=== PATIENT | female | born 1965 | race Two or more races ===

== ENCOUNTER 2024-03-25 15:40 | Inpatient (IN) | payer MEDICAID, OTHER ==
[~2024-03-25] VITALS: Ht 188 cm; Wt 64.1 kg
[2024-03-25] MEDS: hydrALAZINE HCL 20 MG/ML VL IV ONE ×2 (16:36→17:28)
[2024-03-25 16:37] VITALS: PULSE 82; RESP 16; O2SAT 95
[2024-03-25 19:05] VITALS: PULSE 94; RESP 16; O2SAT 97
[2024-03-25 19:18] LABS: Basophils # (auto) 0 10 ^3/uL (0-0.2); Basophils % (auto) 0.6 % (0.0-2.0); Eosinophils # (auto) 0.1 10 ^3/uL (0-0.8); Eosinophils % (auto) 1.6 % (0.0-7.0); Hematocrit 42.9 % (36.0-46.0); Hemoglobin 14.8 g/dL (12.2-16.2); Lymphocytes # (auto) 2.5 10 ^3/uL (0.4-5.4); Lymphocytes % (auto) 37.3 % (10.0-50.0); Mean Corpuscular Hemoglobin 30.1 pg (28.0-32.0); Mean Corpuscular Hgb Conc. 34.6 g/dL (32.0-36.0); Monocytes # (auto) 0.3 10 ^3/uL (0-1.3); Neutrophils # (auto) 3.7 10 ^3/uL (1.6-8.6); Neutrophils % (auto) 55.5 % (37.0-80.0); Nucleated Red Blood Cells % 0.1 %; Platelet Count (auto) 196 10^3/uL (140-450); Red Blood Cells 4.93 10^6/uL (4.0-5.20); Red Cell Distribution Width 13.5 % (11.8-14.3); White Blood Cell 6.6 10^3/uL (4.4-10.8)
[2024-03-25 19:37] LABS: Alanine Aminotransferase 15 U/L (7-40); Albumin 4.6 g/dL (3.2-4.8); Alkaline Phosphatase 85 U/L (46-116); Anion Gap 10 (5-15); Aspartate Aminotransferase < 8 U/L (13-40); Bilirubin, Total 0.5 mg/dL (0.2-1.0); Blood Urea Nitrogen 14 mg/dL (9-23); Calcium 10.1 mg/dL (8.7-10.4); Carbon Dioxide 23 mmol/L (20-31); Chloride 103 mmol/L (98-107); Glucose 308 mg/dL (74-106); Potassium 3.6 mmol/L (3.5-5.1); Sodium 136 mmol/L (136-145); Total Protein 7.9 g/dL (5.7-8.2)
[2024-03-25] MEDS ORDERED: MORPHINE SULFATE INJ 2 MG/ml SYRG IV PRN (22:15)
[2024-03-25] MEDS ORDERED: ONDANSETRON HCL 4 MG/2 ML VIAL IV PRN (22:15)
[2024-03-25] MEDS ORDERED: ACETAMINOPHEN 500 MG TAB PO PRN (22:15)
[2024-03-25] MEDS ORDERED: DEXTROSE (50%) 50ML SYRG IV PRN (22:30)
[2024-03-25] MEDS: ATORVASTATIN 20 MG TAB PO ONE (22:35)
[2024-03-25] MEDS: ENOXAPARIN SOD 40 MG/0.4 ML SYRINGE SC ONE (22:35)
[2024-03-25] MEDS: LISINOPRIL 5 MG TAB PO ONE (22:37)
[2024-03-25] MEDS: ASPirin 81 mg TAB PO ONE (22:38)
[2024-03-25] MEDS: POTASSIUM EFFERVESENT TAB 25 MEQ GT ONE (22:39)
[2024-03-25] MEDS: ACCU-CHEK COMFORT CURVE STRIP VI SCH (22:58)
[2024-03-25 23:10] LABS: Uric Acid 2.9 mg/dL (3.1-7.8)
[2024-03-25 23:11] LABS: Magnesium 1.8 mg/dL (1.6-2.6)
[2024-03-25 23:22] LABS: INR 1.01 (0.9-1.15); Partial Thromboplastin Time 29.4 SEC (24.5-34.5); Prothrombin Time 10.7 sec (9.3-11.8)
[2024-03-25] MEDS: InsuLIN REG 1unit/0.01ml Soln (100units/ml) SC SCH (23:29)
[2024-03-26] VITALS (9 sets, daily range): BP systolic 103–146; BP diastolic 55–80; PULSE 56–99; RESP 17–18; TEMP 97.3–98.1; O2SAT 93–98
[2024-03-26] MEDS: METOPROLOL SUCCINATE XL 50 MG TAB PO ONE (00:26)
[2024-03-26] MEDS: INSULIN LANTUS (GLARGINE) 1 /0.01ml (100units/ml) SC SCH (00:37)
[2024-03-26 07:49] LABS: Basophils # (auto) 0.1 10 ^3/uL (0-0.2); Basophils % (auto) 0.7 % (0.0-2.0); Eosinophils # (auto) 0.1 10 ^3/uL (0-0.8); Eosinophils % (auto) 1.8 % (0.0-7.0); Hematocrit 45.4 % (36.0-46.0); Hemoglobin 15.7 g/dL (12.2-16.2); Lymphocytes # (auto) 2.7 10 ^3/uL (0.4-5.4); Lymphocytes % (auto) 36.3 % (10.0-50.0); Mean Corpuscular Hemoglobin 30.7 pg (28.0-32.0); Mean Corpuscular Hgb Conc. 34.6 g/dL (32.0-36.0); Mean Corpuscular Volume 88.7 fL (80.0-100.0); Monocytes # (auto) 0.4 10 ^3/uL (0-1.3); Monocytes % (auto) 5.4 % (0.0-12.0); Neutrophils # (auto) 4.2 10 ^3/uL (1.6-8.6); Neutrophils % (auto) 55.8 % (37.0-80.0); Nucleated Red Blood Cells % 0.1 %; Platelet Count (auto) 233 10^3/uL (140-450); Red Blood Cells 5.12 10^6/uL (4.0-5.20); Red Cell Distribution Width 13.7 % (11.8-14.3); White Blood Cell 7.5 10^3/uL (4.4-10.8)
[2024-03-26 07:56] LABS: Anion Gap 8 (5-15); Carbon Dioxide 28 mmol/L (20-31); Chloride 103 mmol/L (98-107); Potassium 3.8 mmol/L (3.5-5.1); Sodium 139 mmol/L (136-145)
[2024-03-26 07:57] LABS: Calcium 10.5 mg/dL (8.7-10.4)
[2024-03-26 08:02] LABS: BUN/Creatinine Ratio 18.3 (10.0-20.0); Blood Urea Nitrogen 11 mg/dL (9-23); Glucose 134 mg/dL (74-106)
[2024-03-26] MEDS: LISINOPRIL 5 MG TAB PO SCH (11:13)
[2024-03-26] MEDS: ENOXAPARIN SOD 40 MG/0.4 ML SYRINGE SC SCH (11:13)
[2024-03-26] MEDS: METOPROLOL SUCCINATE XL 50 MG TAB PO SCH (11:14)
[2024-03-26] MEDS: ASPirin 81 mg TAB PO SCH (11:14)
[2024-03-26] MEDS: ATORVASTATIN 20 MG TAB PO SCH (21:57)
[2024-03-26] MEDS: ERGOCALCIFEROL 50,000 UNIT(1.25MG) CAP PO SCH (21:57)
[2024-03-26] MEDS ORDERED: INSULIN LANTUS (GLARGINE) 1 /0.01ml (100units/ml) SC SCH ×2 (22:00)
[2024-03-27] VITALS (7 sets, daily range): BP systolic 123–162; BP diastolic 70–80; PULSE 62–72; RESP 18; TEMP 97.4–98.1; O2SAT 93–99
[2024-03-27 07:37] LABS: Urine Bacteria None Seen /hpf (None Seen)
[2024-03-27 07:52] LABS: COVID19 ANTIGEN SOFIA FIA NEGATIVE (NEGATIVE)
[2024-03-27 07:59] LABS: Urine Blood Negative /uL (Negative); Urine Clarity Clear (Clear); Urine Color Light-Yellow (Yellow); Urine Protein, UAD Negative (Negative); Urine Specific Gravity 1.008 (1.001-1.035); Urine Urobilinogen Normal (Negative); Urine WBC 2 /hpf (0 - 5); Urine pH 5.5 (5.0-9.0)
[2024-03-27 08:09] LABS: Amphetamine Screen, Urine Neg (NEGATIVE); Barbiturate Scree,Urine Neg (NEGATIVE); Benzodiazephine Screen, Urine Neg (NEGATIVE); Cocaine Screen, Urine Neg (NEGATIVE)
[2024-03-27 08:10] LABS: Cannabinoid Screen, Urine Neg (NEGATIVE); Opiate Scree,Urine Neg (NEGATIVE); Phencyclidine Screen, Urine Neg (NEGATIVE)
[2024-03-27] MEDS ORDERED: LISI-275 PO (13:51)
[2024-03-27] MEDS ORDERED: METO-6 PO (13:51)
[2024-03-27] MEDS ORDERED: ASPI-325 PO (13:51)
[2024-03-27] MEDS ORDERED: METF-929 PO (13:51)
[2024-03-27] MEDS ORDERED: ERGO1CAP23 PO (13:51)
[2024-03-27] MEDS ORDERED: ATOR20TA50 PO (13:51)
[2024-03-28] VITALS (10 sets, daily range): BP systolic 121–154; BP diastolic 66–86; PULSE 59–78; RESP 17–20; TEMP 91.8–97.8; O2SAT 93–99
[2024-03-28] MEDS: hydrALAZINE HCL 20 MG/ML VL IV PRN (00:43)
[2024-03-29 01:00] VITALS: BP 117/67; PULSE 69; RESP 18; TEMP 98.6; O2SAT 96
[2024-03-29 05:00] VITALS: BP 149/81; PULSE 72; RESP 18; TEMP 98.9; O2SAT 97
[2024-03-29 08:00] VITALS: PULSE 78; RESP 18; O2SAT 98
[2024-03-29 08:17] VITALS: BP 121/74; PULSE 71; RESP 17; TEMP 97.9; O2SAT 95
[2024-03-29 13:00] VITALS: BP 133/77; PULSE 68; RESP 16; TEMP 98.1; O2SAT 99
[2024-03-29 17:08] VITALS: BP 132/70; PULSE 69; RESP 16; TEMP 97.6; O2SAT 100
== END 2024-03-29 19:57 | DRG 199 ==
LOC: ER 15:40 → OVERFLOW 22:13 → CENTRAL 23:41 → TELE-CENTR 03-26 03:00 → CENTRAL 03-27 07:41
PROVIDERS: ADMIT Internal Medicine; ATTEND Internal Medicine
DX: I16.0 Hypertensive urgency (principal); I69.354 Hemiplegia and hemiparesis following cerebral infarction affecting left non-dominant side; I50.32 Chronic diastolic (congestive) heart failure; E11.65 Type 2 diabetes mellitus with hyperglycemia; E55.9 Vitamin D deficiency, unspecified; I69.320 Aphasia following cerebral infarction; I11.0 Hypertensive heart disease with heart failure
CPT/HCPCS: 36415; 70450; 71045; 80048; 80053; 80307; 81001; 82306; 82607; 82962; 83036; 83735; 83880; 84443; 84484; 84550; 85025; 85610; 85730; 87426; 93306; 96372; 96374; 96375; 97110; 97116; 97163; 97530; G0378; J1815

== ENCOUNTER 2024-04-14 02:34 | Inpatient (IN) | payer MEDICAID ==
[~2024-04-14] VITALS: Ht 167.6 cm; Wt 59.5 kg
[~2024-04-14 02:34] MED LIST: ASPI-325 PO; ATOR20TA50 PO; ERGO1CAP23 PO; LISI-275 PO; METF-929 PO; METO-6 PO
[2024-04-14 03:00] VITALS: PULSE 74; RESP 18; O2SAT 96
[2024-04-14 03:14] LABS: Basophils # (auto) 0.1 10 ^3/uL (0-0.2); Basophils % (auto) 0.7 % (0.0-2.0); Eosinophils # (auto) 0.2 10 ^3/uL (0-0.8); Eosinophils % (auto) 2.8 % (0.0-7.0); Hematocrit 43.1 % (36.0-46.0); Hemoglobin 14.4 g/dL (12.2-16.2); Lymphocytes # (auto) 1.9 10 ^3/uL (0.4-5.4); Lymphocytes % (auto) 26.3 % (10.0-50.0); Mean Corpuscular Hemoglobin 29.5 pg (28.0-32.0); Mean Corpuscular Hgb Conc. 33.5 g/dL (32.0-36.0); Mean Corpuscular Volume 88.2 fL (80.0-100.0); Monocytes # (auto) 0.4 10 ^3/uL (0-1.3); Monocytes % (auto) 5.4 % (0.0-12.0); Neutrophils # (auto) 4.6 10 ^3/uL (1.6-8.6); Neutrophils % (auto) 64.8 % (37.0-80.0); Platelet Count (auto) 186 10^3/uL (140-450); Red Blood Cells 4.89 10^6/uL (4.0-5.20); Red Cell Distribution Width 13.9 % (11.8-14.3); White Blood Cell 7.1 10^3/uL (4.4-10.8)
[2024-04-14 03:31] LABS: Chloride 107 mmol/L (98-107); Potassium 4.2 mmol/L (3.5-5.1); Sodium 138 mmol/L (136-145)
[2024-04-14 03:32] LABS: Anion Gap 6 (5-15); Calcium 9.3 mg/dL (8.7-10.4); Carbon Dioxide 25 mmol/L (20-31)
[2024-04-14 03:37] LABS: BUN/Creatinine Ratio 20.3 (10.0-20.0); Blood Urea Nitrogen 12 mg/dL (9-23); Glucose 151 mg/dL (74-106)
[2024-04-14] MEDS: hydrALAZINE HCL 20 MG/ML VL IV ONE (04:45)
[2024-04-14 06:42] LABS: Urine Bacteria None Seen /hpf (None Seen); Urine WBC None Seen /hpf (0 - 5)
[2024-04-14 07:11] LABS: Urine Blood Negative /uL (Negative); Urine Clarity Clear (Clear); Urine Color Light-Yellow (Yellow); Urine Protein, UAD TRACE (Negative); Urine Specific Gravity 1.015 (1.001-1.035); Urine Urobilinogen Normal (Negative)
[2024-04-14 08:10] VITALS: PULSE 62; RESP 18; O2SAT 96
[2024-04-14] MEDS ORDERED: NITROGLYCERIN 0.4 MG SL TAB SL PRN (09:45)
[2024-04-14] MEDS ORDERED: ACETAMINOPHEN 325 MG TAB PO PRN (09:45)
[2024-04-14] MEDS ORDERED: DOCUSATE SOD 100 MG CAP PO PRN (09:45)
[2024-04-14] MEDS ORDERED: HYDROcodone-ACET 5/325MG TAB PO PRN (09:45)
[2024-04-14] MEDS ORDERED: ONDANSETRON HCL 4 MG/2 ML VIAL IV PRN (09:45)
[2024-04-14] MEDS ORDERED: MORPHINE SULFATE INJ 2 MG/ml SYRG IV PRN (09:45)
[2024-04-14] MEDS ORDERED: DEXTROSE (50%) 50ML SYRG IV PRN (09:45)
[2024-04-14] MEDS: LISINOPRIL 5 MG TAB PO SCH (10:39)
[2024-04-14] MEDS: ERGOCALCIFEROL 50,000 UNIT(1.25MG) CAP PO SCH (10:39)
[2024-04-14] MEDS: METOPROLOL SUCCINATE XL 50 MG TAB PO SCH (10:40)
[2024-04-14] MEDS: ASPirin-EC 81 mg tab PO SCH (10:40)
[2024-04-14] MEDS: ACCU-CHEK COMFORT CURVE STRIP VI SCH (11:58)
[2024-04-14] MEDS: InsuLIN REG 1unit/0.01ml Soln (100units/ml) SC SCH ×2 (12:02→22:00)
[2024-04-14] MEDS: SODIUM CHLOR 0.9% PF (SALINE LOCK) 10ML VIAL/SYR IV SCH (14:02)
[2024-04-14] MEDS ORDERED: hydrALAZINE HCL 20 MG/ML VL IV PRN (16:30)
[2024-04-14] MEDS: SODIUM CHLORIDE 0.9% 1,000 ML IV ONE (16:55)
[2024-04-14] MEDS ORDERED: MOMLQ PO (17:08)
[2024-04-14] MEDS ORDERED: INSLANTI SC (17:08)
[2024-04-14] MEDS ORDERED: BISA10SU45 RE (17:08)
[2024-04-14 17:09] VITALS: BP 143/96; PULSE 70; RESP 20; TEMP 98.1; O2SAT 94
[2024-04-14 17:17] VITALS: BP 121/54; PULSE 62; RESP 17; TEMP 98; O2SAT 98
[2024-04-14 20:00] VITALS: PULSE 59; PULSE 85; O2SAT 96
[2024-04-14 21:00] VITALS: BP 122/53; PULSE 59; RESP 18; TEMP 97.6; O2SAT 94
[2024-04-14] MEDS: ATORVASTATIN 20 MG TAB PO SCH (21:41)
[2024-04-14] MEDS: INSULIN LANTUS (GLARGINE) 1 /0.01ml (100units/ml) SC SCH (22:00)
[2024-04-15] VITALS (9 sets, daily range): BP systolic 127–155; BP diastolic 65–83; PULSE 55–85; RESP 16–18; TEMP 97.8–98.2; O2SAT 94–97
[2024-04-15 06:51] LABS: Basophils # (auto) 0 10 ^3/uL (0-0.2); Basophils % (auto) 0.7 % (0.0-2.0); Eosinophils # (auto) 0.2 10 ^3/uL (0-0.8); Hematocrit 42.7 % (36.0-46.0); Hemoglobin 14.2 g/dL (12.2-16.2); Lymphocytes # (auto) 2.5 10 ^3/uL (0.4-5.4); Lymphocytes % (auto) 41.1 % (10.0-50.0); Mean Corpuscular Hemoglobin 29.6 pg (28.0-32.0); Mean Corpuscular Hgb Conc. 33.3 g/dL (32.0-36.0); Mean Corpuscular Volume 88.9 fL (80.0-100.0); Monocytes # (auto) 0.4 10 ^3/uL (0-1.3); Monocytes % (auto) 6.4 % (0.0-12.0); Neutrophils % (auto) 48.8 % (37.0-80.0); Nucleated Red Blood Cells % 0.2 %; Platelet Count (auto) 197 10^3/uL (140-450); Red Cell Distribution Width 13.9 % (11.8-14.3); White Blood Cell 6.2 10^3/uL (4.4-10.8)
[2024-04-15 07:15] LABS: Alanine Aminotransferase 18 U/L (7-40); Albumin 4.1 g/dL (3.2-4.8); Alkaline Phosphatase 90 U/L (46-116); Anion Gap 6 (5-15); Aspartate Aminotransferase 12 U/L (13-40); BUN/Creatinine Ratio 11.5 (10.0-20.0); Blood Urea Nitrogen 7 mg/dL (9-23); Calcium 9.6 mg/dL (8.7-10.4); Carbon Dioxide 24 mmol/L (20-31); Chloride 111 mmol/L (98-107); Glucose 125 mg/dL (74-106); Potassium 4.1 mmol/L (3.5-5.1); Sodium 141 mmol/L (136-145)
[2024-04-15 07:16] LABS: Bilirubin, Total 0.5 mg/dL (0.2-1.0); Total Protein 7.3 g/dL (5.7-8.2)
[2024-04-16] VITALS (8 sets, daily range): BP systolic 122–149; BP diastolic 72–84; PULSE 51–66; RESP 16–18; TEMP 97.6–98.3; O2SAT 94–98
[2024-04-17] VITALS (8 sets, daily range): BP systolic 124–157; BP diastolic 72–93; PULSE 56–79; RESP 16–18; TEMP 97.5–98.4; O2SAT 95–99
== END 2024-04-17 22:35 | DRG 199 ==
LOC: EDBD 02:34 → ER 02:34 → TELE 09:31 → TELE-WESTW 15:55
PROVIDERS: ADMIT Nurse Practitioner Family; ATTEND Internal Medicine
DX: I16.0 Hypertensive urgency (principal); I69.351 Hemiplegia and hemiparesis following cerebral infarction affecting right dominant side; E11.65 Type 2 diabetes mellitus with hyperglycemia; I69.320 Aphasia following cerebral infarction; Z79.82 Long term (current) use of aspirin; Z79.899 Other long term (current) drug therapy
CPT/HCPCS: 36415; 71045; 80048; 80053; 81001; 82962; 84484; 85025; 87081; 97163; 99291; G0378; J1815

== ENCOUNTER 2025-02-19 21:58 | Emergency (ER) | payer MEDICAID ==
[~2025-02-19] VITALS: Ht 157.5 cm; Wt 70.4 kg
[~2025-02-19 21:58] MED LIST changes: +BISA10SU45 RE; +INSLANTI SC; +MOMLQ PO
--- NOTE | 2025-02-19 22:23 | ED.PDOC ---
Eye-HPI HPI Comments 59 year old female presents to the ED via EMS with a chief complaint of LT eye swelling onset today (02/19/25). Per EMS, patient is from [facility], staff noticed patient's LT eye was red, swollen. Patient noticed eye with secretion, swelling, unable to open eye due to swelling. Patient is a poor historian. PMHx CVA with RT sided deficits, HTN, HLD, DM. No other symptoms or modifying factors present at this time. Chief Complaint: Eye Problem Time Seen by MD: 22:05 (3) Primary Care Provider: NONE Reviewed Notes: Medications, Allergies Allergies: Coded Allergies: NO KNOWN ALLERGIES (Unverified , 03/25/24) Home Meds Active Scripts Metformin HCl (Metformin Hydrochloride) 1,000 Mg Tab, 1000 MG PO BID for 30 Days, #60 TAB Prov:MARVIN DAMON RESIDENT 03/27/24 Metoprolol Succinate (Toprol Xl) 50 Mg Tab, 50 MG PO DAILY for 30 Days, #30 TAB 2 Refills Prov:MARVIN DAMON RESIDENT 03/27/24 Lisinopril (Lisinopril) 5 Mg Tab, 10 MG PO DAILY for 30 Days, #30 TAB 2 Refills Prov:MARVIN DAMON RESIDENT 03/27/24 Ergocalciferol (VITAMIN D 13888 UNIT) 50,000 [place], [address] UNIT PO Q7D for 90 Days, #12 CAP Prov:MARVIN DAMON 03/27/24 Atorvastatin Calcium (ATORVASTATIN CALCIUM) 20 Mg Tab, 40 MG PO HS for 30 Days, #30 TAB 2 Refills Prov:MARVIN DAMON RESIDENT 03/27/24 Aspirin (Aspirin Low Dose) 81 Mg Tab, 81 MG PO DAILY for 30 Days, #30 TAB 2 Refills Prov:MARVIN DAMON RESIDENT 03/27/24 Reported Medications Bisacodyl (Dulcolax) 10 Mg Sup, 10 MG RE, SUPP 04/14/24 Magnesium Hydroxide (MILK OF MAGNESIA ORAL SUSPENSION) 30 Ml Ss, 30 ML PO, ML 04/14/24 Insulin Glargine (Lantus) 100 Unit/Ml Inj, 15 UNIT SC, INJ 04/14/24 Information Source: Patient, Emergency Med Personnel Mode of Arrival: EMS Timing: Hours Duration: Since onset Prehospital treatment: None Quality: Red, Discharge Onset: Spontaneous Throat Exposed to: None History of: None Associated signs and symptoms: Discharge Past Medical History PAST MEDICAL HISTORY: CVA, DM, High Lipids, HTN Surgical History: Denies all surgeries TUBE COREMAKER History: No Pertinent TUBE COREMAKER History Family History Family History: Reviewed,noncontributory to illness Social History Smoker: Non-Smoker Alcohol: Denies ETOH Use Drugs: Denies Drug Use Lives In: [facility] Constitutional: denies: chills, diaphoresis, fatigue, fever, malaise, sweats, weakness, others EENTM: reports: eye redness, others (LT eye swelling); denies: blurred vision, double vision, ear bleeding, ear discharge, ear drainage, ear pain, ear ringing, eye pain, hearing loss, mouth pain, mouth swelling, nasal discharge, nose bleedi ng, nose congestion, nose pain, photophobia, tearing, throat pain, throat swelling, voice changes Respiratory: denies: cough, hemoptysis, orthopnea, SOB at rest, shortness of breath, SOB with excertion, stridor, wheezing, others Cardiovascular: denies: chest pain, dizzy spells, diaphoresis, Dyspnea on exertion, edema, irregular heart beat, left arm pain, lightheadedness, palpitations, PND, syncope, others Gastrointestinal: denies: abdomen distended, abdominal pain, blood streaked bowels, constipated, diarrhea, dysphagia, difficulty swallowing, hematemesis, melena, nausea, poor appetite, poor fluid intake, rectal bleeding, rectal pain, vomiting, others Genitourinary: denies: abnormal vagina bleeding, burning, dyspareunia, dysuria, flank pain, frequency, hematuria, incontinence, pain, , vagina discharge, urgency, others Neurological: denies: dizziness, fainting, headache, left sided numbness, left sided weakness, numbness, paresthesia, pre-existing deficit, right sided numbness, right sided weakness, seizure, speech problems, tingling, tremors, weakness, others Musculoskeletal: denies: back pain, gout, joint pain, joint swelling, muscle pain, muscle stiffness, neck pain, others Integumetry: denies: bruises, change in color, change in hair/nails, dryness, laceration, lesions, lumps, rash, wounds, others Allergic/Immunocompromised: denies: Difficulty Healing, Frequent Infections, Hives, Itching, others Hematologic/Lymphatic: denies: anemia, blood clots, easy bleeding, easy bruising, swollen glands, others Endocrine: denies: excessive hunger, excessive sweating, excessive thirst, excessive urination, flushing, intolerance to cold, intolerance to heat, unexplained weight gain, unexplained weight loss, others Psychiatric: denies: anxiety, bipolar disorder, depression, hopeless, panic disorder, schizophrenia, sleepless, suicidal, others All Other Systems: Reviewed and Negative Physical Exam General Appearance: Normal HEENT: Normal ENT Inspection, Pharynx Normal, TMs Normal Neck: Full Range of Motion, Non-Tender, Normal, Normal Inspection Respiratory: Chest Non-Tender, Lungs Clear, No Accessory Muscle Use, No Respiratory Distress, Normal Breath Sounds Cardiovascular: No Edema, No JVD, No Murmur, No Gallop, Normal Peripheral Pulses, Regular Rate/Rhythm Breast Exam: Deferred Gastrointestinal: No Organomegaly, Non Tender, No Pulsatile Mass, Normal Bowel Sounds, Soft Genitalia: Deferred Pelvic: Deferred Rectal: Deferred Extremities: No calf tenderness, Normal capillary refill, Normal inspection, Normal range of motion, Non-tender, No pedal edema Musculoskeletal : Apperance: Normal Neurologic: Alert, naturopathic oncology provider II-XII nml as Tested, No Motor Deficits, Normal Affect, Normal Mood, No Sensory Deficits Cerebellar Function: Normal Reflexes: Normal Skin: Dry, Normal Color, Warm Lymphatic: No Adenopathy Was a procedure done? Was a procedure done?: No EENT DIFF Eye: Conjunctivitis, Viral Ear: N/A Nose: N/A Mouth: N/A Sore Throat: N/A X-Ray, Labs, Meds, VS Vital Signs Date Time Temp Pulse Resp B/P (MAP) Pulse Ox O2 Delivery O2 Flow Rate FiO2 02/19/25 23:05 92 16 98 Room Air* 0 21 02/19/25 23:05 98.5 92 16 188/92 (124) 98 98.5 02/19/25 22:04 98.5 92 16 188/92 98 98.5 02/19/25 22:04 70 Lab Test 02/19/25 23:00 Range/Units White Blood Count 7.9 4.4-10.8 10^3/uL Red Blood Count 4.64 4.0-5.20 10^6/uL Hemoglobin 13.8 12.2-16.2 g/dL Hematocrit 40.7 36.0-46.0 % Mean Corpuscular Volume 87.6 80.0-100.0 fL Mean Corpuscular Hemoglobin 29.6 28.0-32.0 pg Mean Corpuscular Hemoglobin Concent 33.8 32.0-36.0 g/dL Red Cell Distribution Width 14.3 11.8-14.3 % Platelet Count 184 140-450 10^3/uL Mean Platelet Volume 10.4 6.9-10.8 fL Neutrophils (%) (Auto) 59.9 37.0-80.0 % Lymphocytes (%) (Auto) 29.2 10.0-50.0 % Monocytes (%) (Auto) 6.0 0.0-12.0 % Eosinophils (%) (Auto) 4.0 0.0-7.0 % Basophils (%) (Auto) 0.9 0.0-2.0 % Neutrophils # (Auto) 4.8 1.6-8.6 10 ^3/uL Lymphocytes # (Auto) 2.3 0.4-5.4 10 ^3/uL Monocytes # (Auto) 0.5 0-1.3 10 ^3/uL Eosinophils # (Auto) 0.3 0-0.8 10 ^3/uL Basophils # (Auto) 0.1 0-0.2 10 ^3/uL Nucleated Red Blood Cells 0.0 % Sodium Level 139 136-145 mmol/L Potassium Level 4.3 3.5-5.1 mmol/L Chloride Level 106 98-107 mmol/L Carbon Dioxide Level 27 20-31 mmol/L Anion Gap 6 5-15 Blood Urea Nitrogen 8 L 9-23 mg/dL Creatinine 0.61 0.550-1.02 mg/dL Glomerular Filtration Rate Calc 104 >90 mL/min BUN/Creatinine Ratio 13.1 10.0-20.0 Serum Glucose 244 H 74-106 mg/dL Calcium Level 9.0 8.7-10.4 mg/dL Current Medications Medications (Trade) Dose Ordered Sig/Christa Route Start Time Stop Time Status Last Admin Erythromycin 1 applic ONCE ONCE OP 02/19/25 23:00 02/19/25 23:01 DC 02/19/25 22:55 Time of 1ST Reevaluation: 22:35 Reevaluation 1ST: Unchanged Patient Education/Counseling: Diagnosis, Treatment, Prognosis Family Education/Counseling: No Family Present SEPSIS Sepsis Screen Date sepsis recognized/suspect: Feb 19, 2025 Time Sepsis recognized/suspect: 2203 Recent Procedure: No On Antibiotic Therapy: No Respiratory Rate >20: No Heart Rate >90: Yes Temp<36 C (96.8 F) or >38.3 C: No SBP <90 or MAP <65 mmHG: No New Acute Mental Status Change: No Is the patient on CPAP, BIPAP,: No Physician Orders Electrocardigram (02/19/25 22:32) Vital Signs Date Time Temp Pulse Resp B/P (MAP) Pulse Ox O2 Delivery O2 Flow Rate FiO2 02/19/25 23:05 92 16 98 Room Air* 0 21 02/19/25 23:05 98.5 92 16 188/92 (124) 98 98.5 02/19/25 22:04 98.5 92 16 188/92 98 98.5 02/19/25 22:04 70 Laboratory Tests Test 02/19/25 23:00 White Blood Count 7.9 10^3/uL (4.4-10.8) Medications Medications Dose Ordered Sig/Christa Route Start Time Stop Time Status Last Admin Dose Admin Erythromycin 1 applic ONCE ONCE OP 02/19/25 23:00 02/19/25 23:01 DC 02/19/25 22:55 Departure 1 Departure Time of Disposition: 00:50 (Patient with a bacterial conjunctivitis. We will discharge patient home with outpatient follow up) Impression: Primary Impression: Conjunctivitis Qualified Codes: H10.32 - Unspecified acute conjunctivitis, left eye Disposition: 03 USP FACILITY Condition: Stable Additional Instructions: You have conjunctivitis. You were prescribed antibiotics. Please take as directed. e-Prescriptions Erythromycin (Erythromycin) 5 Mg/Gm Oin 1 MG OP QID for 7 Days, #1 OIN Prov: BENIGNO GIPSON MD 02/20/25 Discharged With: Self Critical Care Note Critical Care Time?: No Stability Stability form required: No I personally scribed for BENIGNO GIPSON MD ([email or web address]) on 02/19/25 at 22:23. Electronically submitted by Floridalma Jules ([email or web address]). BENIGNO GIPSON MD Feb 19, 2025 22:23
[2025-02-19] MEDS: ERYTHROMY OPTH OINT 5mg/gm 1gm or 3.5gm tube OP ONE (22:55)
[2025-02-19 23:05] VITALS: BP 188/92; PULSE 92; RESP 16; TEMP 98.5; O2SAT 98
[2025-02-19 23:06] LABS: Hematocrit 40.7 % (36.0-46.0); Hemoglobin 13.8 g/dL (12.2-16.2); Mean Corpuscular Hemoglobin 29.6 pg (28.0-32.0); Mean Corpuscular Volume 87.6 fL (80.0-100.0); Nucleated Red Blood Cells % 0.0 %
[2025-02-19 23:18] LABS: Anion Gap 6 (5-15); Carbon Dioxide 27 mmol/L (20-31); Chloride 106 mmol/L (98-107); Potassium 4.3 mmol/L (3.5-5.1); Sodium 139 mmol/L (136-145)
[2025-02-19 23:19] LABS: Calcium 9.0 mg/dL (8.7-10.4)
[2025-02-19 23:24] LABS: BUN/Creatinine Ratio 13.1 (10.0-20.0)
[2025-02-19 23:35] LABS: Blood Urea Nitrogen 8 mg/dL (9-23); Glucose 244 mg/dL (74-106)
[2025-02-20] MEDS ORDERED: ERY05OO OP (00:52)
--- NOTE | 2025-02-21 14:14 | ECG ---
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
== END 2025-02-20 11:37 | disposition home or self-care (01) ==
LOC: ER 21:58 → EDBD 21:58 → ER 02-20 11:37
DX: H10.32 Unspecified acute conjunctivitis, left eye (principal); E78.5 Hyperlipidemia, unspecified; E11.9 Type 2 diabetes mellitus without complications; I10 Essential (primary) hypertension; Z79.899 Other long term (current) drug therapy; Z79.84 Long term (current) use of oral hypoglycemic drugs; Z79.82 Long term (current) use of aspirin; Z86.73 Personal history of transient ischemic attack (TIA), and cerebral infarction without residual deficits
CPT/HCPCS: 36415; 80048; 85025; 93005